=== PATIENT | female | born 1990 | race American Indian/Alaskan Native ===

== ENCOUNTER 2017-05-01 23:36 | Emergency (ER) | payer OTHER ==
[2017-05-02 01:51] VITALS: BP 116/77
[2017-05-02 02:24] LABS: Basophils % (Auto) 0.4 % (0.0-1.8); Eosinophils % (Auto) 0.5 % (0.0-4.3); Mean Corpuscular HGB Conc 33 % (30-34); Mean Corpuscular Hemoglobin 27 pg (28-32); Mean Corpuscular Volume 84 fl (79-97); Platelet Count 312 K/mm3 (140-440); Red Blood Count 4.42 M/mm3 (3.65-5.03); Red Cell Distribution Width 13.3 % (13.2-15.2); White Blood Count 12.8 K/mm3 (4.5-11.0)
[2017-05-02 02:43] LABS: Alanine Aminotransferase 118 units/L (7-56); Albumin 3.9 g/dL (3.9-5); Albumin/Globulin Ratio 1.3 %; Alkaline Phosphatase 74 units/L (35-129); Anion Gap 17 mmol/L; BUN/Creatinine Ratio 16; Blood Urea Nitrogen 8 mg/dL (7-17); Calcium 8.7 mg/dL (8.4-10.2); Carbon Dioxide 24 mmol/L (22-30); Chloride 101.7 mmol/L (98-107); Glucose 92 mg/dL (65-100); Lipase 35 units/L (13-60); Potassium 4.4 mmol/L (3.6-5.0); Sodium 138 mmol/L (137-145)
[2017-05-02 03:36] LABS: Bacteria,Urine 1+ /HPF (Negative); Bilirubin,Urine NEG (Negative); Blood,Urine NEG (Negative); Ketones,Urine NEG (Negative); Leukocyte Esterase,Urine TR (Negative); Mucus,Urine FEW /HPF; Nitrite,Urine NEG (Negative); Protein,Urine <15 mg/dL mg/dL (Negative); Urobilinogen,Urine < 2.0 mg/dL (<2.0)
== END 2017-05-02 05:48 | disposition left against medical advice (07) ==
LOC: ED 23:36
DX: R10.30 Lower abdominal pain, unspecified (principal); R11.2 Nausea with vomiting, unspecified; Z53.21 Procedure and treatment not carried out due to patient leaving prior to being seen by health care provider
CPT/HCPCS: 36415; 80053; 81001; 83690; 84703; 85025

== ENCOUNTER 2017-05-02 08:39 | Emergency (ER) | payer SELFPAY ==
[2017-05-02 09:47] VITALS: BP 99/76
[2017-05-02 11:41] LABS: Bacteria,Urine 2+ /HPF (Negative); Bilirubin,Urine NEG (Negative); Blood,Urine SM (Negative); Ketones,Urine NEG (Negative); Leukocyte Esterase,Urine MOD (Negative); Mucus,Urine 1+ /HPF; Nitrite,Urine POS (Negative); Protein,Urine <15 mg/dL mg/dL (Negative); Urobilinogen,Urine < 2.0 mg/dL (<2.0)
[2017-05-02 11:42] LABS: WBC,Urine > 182.0 /HPF (0.0-6.0)
[2017-05-02] MEDS ORDERED: XYLOCAINE 1% MPF 5 mL INFILTRATI ONE (12:04)
[2017-05-02] MEDS ORDERED: ROCEPHIN IM ONE (12:04)
[2017-05-02] MEDS ORDERED: TORADOL IM ONE (12:04)
--- NOTE | 2017-05-02 12:05 | Emergency Department Report ---
HPI - General Chief Complaint: Abdominal Pain Time Seen by Provider: 05/02/17 11:17 - HPI HPI: Patient is a 26-year-old female with no prior medical history presents to ED complaining of pelvic cramping. This started 2 days ago. Patient states pain started her sides and has migrated to the pelvic region. Patient states she has had a history of kidney stones about 3 months ago that was in the kidneys. Patient states mild dysuria nausea and frequency. Patient denies vaginal bleeding, vaginal discharge, fever, chills,, vomiting, abdominal pain, chest pain, shortness of breath ED Past Medical Hx - Past Medical History Hx Kidney Stones: Yes Hx Asthma: Yes - Social History Smoking Status: Current Every Day Smoker Substance Use Type: None - Medications Home Medications: Home Medications Medication Instructions Recorded Confirmed Last Taken Type Acetaminophen/Codeine [Tylenol 1 tab PO Q6H PRN #10 tab 05/02/17 Unknown Rx /Codeine # 3 tab] Ibuprofen [Motrin] 800 mg PO Q8HR PRN #30 tablet 05/02/17 Unknown Rx Sulfamethoxazole/Trimethoprim 1 each PO BID #14 tablet 05/02/17 Unknown Rx [Bactrim DS TAB] ED Review of Systems ROS: Stated complaint: ABDOMINAL PAIN Other details as noted in HPI Constitutional: denies: chills, fever Eyes: denies: eye pain, eye discharge, vision change ENT: denies: ear pain, throat pain Respiratory: denies: cough, shortness of breath, wheezing Cardiovascular: denies: chest pain, palpitations Endocrine: no symptoms reported Gastrointestinal: denies: abdominal pain, nausea, diarrhea Genitourinary: denies: urgency, dysuria, discharge Musculoskeletal: denies: back pain, joint swelling, arthralgia Skin: denies: rash, lesions Neurological: denies: headache, weakness, paresthesias Psychiatric: denies: anxiety, depression Hematological/Lymphatic: denies: easy bleeding, easy bruising Physical Exam - Physical Exam Vital Signs: Vital Signs 05/02/17 09:43 Temperature 98.6 F Pulse Rate 92 H Respiratory 12 Rate Blood Pressure 99/76 O2 Sat by Pulse 100 Oximetry Physical Exam: GENERAL: Alert and oriented x3, no apparent distress, Normal Gait, atraumatic. HEAD: Head is normocephalic and a-traumatic. EYES: Extra ocular muscles are intact. Pupils are equal, round, and reactive to light and accommodation. LUNGS: Symetrical with respiration, CTAB. HEART: S1, S2 present, regular rate and rhythm without murmur. Non tender to palpation ABDOMEN: No organomegaly was noted,Positive bowel sounds, soft, and non- distended. . Nontender to palpation on all Quadrants, NO CVA tenderness. BACK: Full range of motion, no spinal tenderness, nontender to palpation. SKIN: Warm and dry, No lesions, No ulceration or induration present. ED Course Vital Signs 05/02/17 09:43 Temperature 98.6 F Pulse Rate 92 H Respiratory 12 Rate Blood Pressure 99/76 O2 Sat by Pulse 100 Oximetry ED Medical Decision Making - Lab Data Laboratory Results - last 24 hr 05/02/17 Unknown Urine Color Yellow Urine Turbidity Clear Urine pH 6.0 Ur Specific [place] 1.021 Urine Protein <15 mg/dl Urine Glucose (UA) 50 Urine Ketones Neg Urine Blood Sm Urine Nitrite Pos Urine Bilirubin Neg Urine Urobilinogen < 2.0 Ur Leukocyte Esterase Mod Urine WBC (Auto) > 182.0 H Urine RBC (Auto) 3.0 U Epithel Cells (Auto) 2.0 Urine Bacteria (Auto) 2+ Urine Mucus 1+ Lab Results 05/02/17 Range/Units Unknown Urine Color Yellow (Yellow) Urine Turbidity Clear (Clear) Urine pH 6.0 (5.0-7.0) Ur Specific [place] 1.021 (1.003-1.030) Urine Protein <15 mg/dl (Negative) mg/dL Urine Glucose (UA) 50 (Negative) mg/dL Urine Ketones Neg (Negative) mg/dL Urine Blood Sm (Negative) Urine Nitrite Pos (Negative) Urine Bilirubin Neg (Negative) Urine Urobilinogen < 2.0 (<2.0) mg/dL Ur Leukocyte Esterase Mod (Negative) Urine WBC (Auto) > 182.0 H (0.0-6.0) /HPF Urine RBC (Auto) 3.0 (0.0-6.0) /HPF U Epithel Cells (Auto) 2.0 (0-13.0) /HPF Urine Bacteria (Auto) 2+ (Negative) /HPF Urine Mucus 1+ /HPF - Medical Decision Making 26-year-old female presents to ED with urinary tract infection/acute pyelo ED course: Patient received medication for nausea, pain and Rocephin. Urinalysis shows definite urinary tract infection, CBC shows elevated white count, CMP, within normal limits I discussed FINDINGS with the patient. I discussed the patient to take medication as prescribed follow up with her primary care physician Signs are normal patient is in no acute or respiratory distress - Differential Diagnosis acute pyelonephritis, UTI, kidney stones, Critical care attestation.: If time is entered above; I have spent that time in minutes in the direct care of this critically ill patient, excluding procedure time. ED Disposition Clinical Impression: UTI (urinary tract infection) Qualifiers: Urinary tract infection type: acute cystitis Hematuria presence: with hematuria Qualified Code(s): N30.01 - Acute cystitis with hematuria Disposition: TO HOME OR SELFCARE Is pt being admited?: No Does the pt Need Aspirin: No Condition: Stable Instructions: Kidney Stones (ED), Urinary Tract Infection in Women (ED), Acute Pyelonephritis (ED), Abdominal Pain (ED) Additional Instructions: Make sure to follow up with the primary care physician as discussed. Take all your medications as you've been prescribed. If you have any worsening symptoms or develop new symptoms please return to ED immediately. Prescriptions: Acetaminophen/Codeine [Tylenol /Codeine # 3 tab] 1 tab PO Q6H PRN #10 tab PRN Reason: Pain Ibuprofen [Motrin] 800 mg PO Q8HR PRN #30 tablet PRN Reason: Pain Sulfamethoxazole/Trimethoprim [Bactrim DS TAB] 1 each PO BID #14 tablet Referrals: PRIMARY CARE, [Primary Care Provider] - 3-5 Days [facility] [Outside] - 3-5 Days [facility] [Outside] - 3-5 Days Forms: Work/School Release Form(ED) Time of Disposition: 13:24
[2017-05-02] MEDS ORDERED: ZOFRAN ODT PO ONE (12:22)
== END 2017-05-02 13:40 | disposition home or self-care (01) ==
LOC: ED 08:39
DX: N30.01 Acute cystitis with hematuria (principal); J45.909 Unspecified asthma, uncomplicated; F17.200 Nicotine dependence, unspecified, uncomplicated
CPT/HCPCS: 81001; 96372; 99283; J0696; J1885; Q0162